=== PATIENT | female | born 1960 | race Two or more races ===

== ENCOUNTER 2019-02-12 12:09 | Emergency (ER) | payer OTHER, MEDICAID ==
[~2019-02-12] VITALS: Ht 152.4 cm; Wt 67.1 kg
[2019-02-12 12:34] VITALS: BP 136/94
== END 2019-02-12 13:24 | disposition home or self-care (01) ==
LOC: ER 12:09
DX: J20.9 Acute bronchitis, unspecified (principal); I10 Essential (primary) hypertension